=== PATIENT | female | born 1975 | race Caucasian/White ===

== ENCOUNTER 2021-05-03 15:26 | Emergency (ER) | payer MEDICAID, SELFPAY ==
[2021-05-03 15:29] VITALS: BP 138/87; PULSE 104; RESP 22; TEMP 36.7; O2SAT 97; BMI 37.8
--- NOTE | 2021-05-03 16:37 | EDS_ITS ---
HPI HPI - Fall History of Present Illness Chief Complaint: Fall Detail of Chief Complaint: With back pain Informant: patient Occured/Mechanism Occurred: Today Mechanism/Context: Yes same level fall Usually ambulates: Without assistance Pain/Injury Pain Location: back Current Severity: Moderate Maximum Severity: Moderate Associated Symptoms Associated Symptoms: Positive for Inability to ambulate and Loss of consciousness; Negative for Parasthesias, Weakness and Loss of function Narrative Narrative: 45-year-old female with past medical hypertension, depression and anxiety. Was walking her dog it was a snow-covered street then the dog went to pull her and she slipped and fell. Said she went up and there landed on her back injuring her thoracic and lumbar spine. She denies hitting her head. No LOC. She is on no blood thinners. Her only complaint is back pain. She denies any chest or abdominal pain. She has no back history of prior back surgery. She denies any numbness or weakness to her arms or legs. Prior similar symptoms: No Recent Illness/Hospitalization: No PFSH PFSH Medical History Anxiety Depression Hypertension Home Medications lisinopril 05/03/21 [History Last Taken Unknown] Allergy/AdvReac Type Severity Reaction Status Date / Time Penicillins Allergy Rash Verified 05/03/21 15:29 Social History Smoking Status: Never smoker ROS ROS ED ROS Narrative Denies recent illness. Review of Systems ROS Unobtainable: Denies due to encephalopathy Constitutional Constitutional ED: Denies fever(s) Eyes Eyes: Denies change in vision ENT ENT ED: Denies ear pain Cardiovascular Cardiovascular: Denies chest pain Respiratory/Chest Respiratory/Chest: Denies cough or dyspnea Gastrointestinal Gastrointestinal: Denies abdominal pain Genitourinary Genitourinary ED: Denies dysuria or hematuria Musculoskeletal Musculoskeletal: Reports back pain; Denies myalgias Integumentary Denies abscess or rash Neurologic Neurologic: Denies headache(s) Psychiatric Psychiatric: Denies depression Endocrine Endocrinology: Denies polydipsia or polyuria Hematologic/Lymphatic Hematologic/Lymphatic: Denies easy bruising Allergic/Immunologic Allergic/Immunologic ED: Denies urticaria EXAM Physical Exam Narrative Exam Narrative: 45-year-old female lying on a backboard. Vital signs stable afebrile. H EENT exam unremarkable atraumatic. Pupils are reactive to light. Face and scalp nontender. C-spine nontender. Trachea midline. Lungs clear to auscultation bilaterally. Heart regular rate and rhythm rate about 100 no murmur. Chest nontender. Abdomen soft nontender. Pelvic girdle intact. Moving all 4 extremities. Normal range of motion. Nontender no deformity. 5-5 fish liver sorter strength. Dorsi plantar flexion intact. Neurologically she is awake and alert with no focal motor or sensory deficits. Patient was rolled her left side her pain in her back is primary in the mid to lower thoracic area in the lumbar spine. There is no bruising or signs of trauma otherwise. She was taken off the backboard. Const Vital Signs: 05/03/21 15:29 05/03/21 16:50 Temperature 98.0 F Temperature Source Temporal Pulse Rate 104 H Respiratory Rate 22 H 20 H Respiratory Effort Normal Respiratory Depth Normal Respiratory Pattern Normal Blood Pressure 138/87 H Blood Pressure Mean 104 Pulse Ox 97 Oxygen Delivery Method Room Air Positive well nourished, well developed and obese; Negative for cachectic, contractures or unkempt General Appearance ED: well developed and NAD; Negative for unkempt, cachectic or contractures Nutritional Appearance: obese; Negative for cachectic HEENT Reports normocephalic atraumatic; Negative for trauma or tenderness Eyes PERRL and EOMs intact bilaterally General Eye ED: Negative for pale conjunctiva or scleral icterus Neck full ROM, no lymphadenopathy and supple General: Negative for tenderness Chest Wall inspection of chest normal and palpation of chest normal Resp normal respiratory effort, no retractions and clear to auscultation bilaterally Auscultation: Negative for rales, rhonchi or wheezes Cardio regular rate, regular rhythm, S1 normal heart sound, S2 normal heart sound and no murmurs GI non-tender, non-distended and no masses Auscultation: normoactive bowel sounds Palpation: soft; Negative for guarding Back/Spine no CVA tenderness General Back: tenderness; Negative for CVA tenderness or swelling Cervical Spine: Negative for cervical spine tenderness Thoracic Spine / Upper Back: thoracic spinal tenderness Lumbar Spine / Lower Back: lumbar spinal tenderness, paraspinal muscle tenderness and straight leg raise negative bilaterally; Negative for straight leg raise positive right or straight leg raise positive - left Extremity normal to inspection, full ROM, normal capillary refill and no clubbing, cyanosis or edema Neuro oriented x3, moves all extremities and no focal motor deficits Sensorium / Orientation: alert, oriented to person, oriented to place and oriented to time; Negative for orientation impaired, confused, lethargic or stuporous Motor Exam: strength 5/5 throughout; Negative for general weakness or strength abnormal Psych mental status grossly normal and thought process normal Appearance: Negative for unkempt Attitude: No agitated Mood & Affect: Negative for depressed, anxious or tearful Skin Lesions: no lesions Rashes: no rashes MDM MDM MDM Narrative Medical decision making narrative: Morphine and p.o. Zofran. X-rays of her thoracic and lumbar spine are being obtained. C-spine is completely nontender. She has a normal neuro exam.45-year-old female was walking her dog slipped on the ice fell injuring her back. Repeat exam patient is doing well at 5:45 PM. Her pain is much improved to the IM injection of morphine. I went over her x-rays with her. She will be discharged home. Ice to her back. Motrin and Tylenol. Follow-up if not improving. Return if worse. Radiography Diagnostic Testing: Lumbar spine x-rays 3 views interpreted by myself shows no acute abnormality. No fracture. Thoracic spine x-rays 2 views interpreted by myself shows no acute abnormality. No fracture. Discharge Plan Triage Chief Complaint: Fall Other Complaint: Back ED Provider: Chi Lr Dx/Rx/DC Orders Clinical Impression: Back contusion Instructions: ED Back Contusion Prescriptions: No Action lisinopril RF: 0 Primary Care Provider: Care Physician,No Primary Referrals: Graeme Llanos MD [NON-STAFF] - 3-5 Days if not improving Activity Restrictions/Additional Instructions: Your x-rays were normal. Ice to your back to decrease pain and inflammation. Hot shower, warm bath and massage to relax the muscles. Motrin and Tylenol for pain. Follow-up if not improving. Disposition Disposition: Home, Self Care
[2021-05-03] MEDS: Ondansetron ODT 4 MG Tablet PO (16:44)
[2021-05-03] MEDS: morphine 10 MG/ML Syringe IM (16:45)
--- NOTE | 2021-05-03 16:45 | RAD_ITS ---
STUDY: X-RAY - LUMBAR SPINE REASON FOR EXAM: Female, 45 years old. Pain after fall TECHNIQUE: 3 view(s) of the lumbar spine were obtained. COMPARISON: None FINDINGS: Please see the impression. RAD/Lumbar Spine 2 or 3 Views IMPRESSION: No acute fracture or subluxation in the lumbar spine. Minimal to mild multilevel lumbar spondylosis. Electronically Signed: Felipe Wick MD at 17:52 EST Tel , Service support ,
--- NOTE | 2021-05-03 16:45 | RAD_ITS ---
STUDY: X-RAY - THORACIC SPINE REASON FOR EXAM: Female, 45 years old. Pain after fall TECHNIQUE: 3 view(s) of the thoracic spine were obtained. COMPARISON: None. FINDINGS: Please see the impression. RAD/Thoracic Spine 2 Views IMPRESSION: Compression deformity of the superior endplate of T12, probably old. CT scan may be obtained if clinical suspicion for acute fracture is high. Mild multilevel thoracic spondylosis with minimal dextroscoliosis. No endplate erosion. Electronically Signed: Felipe Wick MD at 17:53 EST Tel , Service support ,
[2021-05-03 16:50] VITALS: RESP 20
[2021-05-03 18:04] VITALS: PULSE 94; RESP 20
== END 2021-05-03 18:15 | disposition home or self-care (01) ==
PROVIDERS: Emergency Provider Emergency Medicine; Visit Provider Emergency Medicine
DX: S20.229A Contusion of unspecified back wall of thorax, initial encounter (principal); E66.9 Obesity, unspecified; W00.0XXA Fall on same level due to ice and snow, initial encounter
CPT/HCPCS: 72070; 72100; 96372; 99284

== ENCOUNTER 2022-04-25 19:52 | Emergency (ER) | payer MEDICAID, SELFPAY ==
[2022-04-25 19:53] VITALS: BP 180/95; PULSE 93; RESP 18; TEMP 36.4; O2SAT 95; BMI 35.6
--- NOTE | 2022-04-25 20:03 | EDS_ITS ---
HPI History of Present Illness Chief Complaint: Dental Narrative Narrative: Patient presents with right lower dental pain for 2 to 3 days. No fevers or chills. She has dental decay, she is new to the area and does not have a dentist. [facility] Medical History Anxiety Depression Hypertension Home Medications clindamycin HCl 150 mg capsule 150 mg PO TID #15 caps 04/25/22 [Rx Last Taken Unknown] naproxen 500 mg tablet (Naprosyn) 500 mg PO BID #20 tabs 04/25/22 [Rx Last Taken Unknown] Allergy/AdvReac Type Severity Reaction Status Date / Time Penicillins Allergy Rash Verified 04/25/22 19:54 Social History Smoking Status: Never smoker ROS ROS ED ROS Narrative Past medical history: Reviewed Medications: Reviewed Social history: Noncontributory Review of systems: All systems negative except as indicated General: No fever Eyes: No visual changes ENT: Dental pain, no difficulty swallowing. Neck: No neck pain Cardiovascular: No chest pain Hematologic: No easy bleeding or easy bruising EXAM Physical Exam Narrative Exam Narrative: Physical exam General: Patient appears uncomfortable Head: Normocephalic, Atraumatic Eyes: Conjunctiva not pale ENT: Moist mucous membranes. She has widespread dental decay, she has tenderness right lower second molar, this is a decayed tooth with only remnants seen. There is no periapical abscess. No significant facial swelling. Normal soft palate. No pain under the tongue or firmness or hardness. Neck: Supple, Nontender, No lymphadenopathy Cardiovascular: Regular rate, Regular rhythm Respiratory: No distress, CTA bilaterally Negative for: CVA tenderness Extremities: Nontender, No edema Skin: Normal color, No rash Const Vital Signs: 04/25/22 19:53 Temperature 97.5 F L Temperature Source Temporal Pulse Rate 93 Respiratory Rate 18 Blood Pressure 180/95 H Blood Pressure Mean 123 Pulse Ox 95 Oxygen Delivery Method Room Air MDM MDM MDM Narrative Medical decision making narrative: A. Problems addressed Dental pain, dental infection, I considered the possibilities of deep infections or systemic infections. B. Amount and/or complexity of the data Patient was discussed with her who was in the room who told me that she has been in quite a bit of pain recently. C. Patient does not have any signs or symptoms of any deep infection. I considered x-rays however I do not believe that are needed at this time, patient will be given analgesics and antibiotics in the emergency department and for home. I referred her to dentistry as per our community resource paper. Discharge Plan Triage Chief Complaint: Dental ED Provider: Johan Salazar Dx/Rx/DC Orders Clinical Impression: Dental infection, Odontalgia, Dental decay Instructions: ED Dental Pain Prescriptions: New clindamycin HCl 150 mg capsule 150 mg PO TID Qty: 15 0RF naproxen [Naprosyn] 500 mg tablet 500 mg PO BID Qty: 20 0RF Primary Care Provider: Care Physician,No Primary Referrals: Care Physician,No Primary [Primary Care Provider] - 3-5 Days Disposition Disposition: Home, Self Care
[2022-04-25] MEDS: oxyCODONE 5 MG Tablet PO (20:14)
[2022-04-25] MEDS: Clindamycin HCl 150 MG Capsule 300 MG PO (20:14)
[2022-04-25 20:20] VITALS: RESP 16
== END 2022-04-25 20:20 | disposition home or self-care (01) ==
LOC: ED 20:13
PROVIDERS: Emergency Provider Emergency Medicine; Visit Provider Emergency Medicine
DX: K04.7 Periapical abscess without sinus (principal); K02.9 Dental caries, unspecified; I10 Essential (primary) hypertension; K08.89 Other specified disorders of teeth and supporting structures
CPT/HCPCS: 99283; A4216

== ENCOUNTER 2022-12-04 17:50 | Emergency (ER) | payer OTHER, MEDICAID, SELFPAY ==
[2022-12-04 17:51] VITALS: BP 177/112; PULSE 119; RESP 14; TEMP 36.9; O2SAT 97; BMI 35.9
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
--- NOTE | 2022-12-04 18:22 | ED.RN ---
Per Dr Lr patient is low risk and does not require a sitter.
[2022-12-04 18:28] LABS: Absolute Neutrophil Count 6.7 X10^3/uL (2.0-7.7); Basophil# 0.06 X10^3/uL; Basophil% 0.6 % (0-1); Eosinophil# 0.14 X10^3/uL; Eosinophils% 1.5 % (0-5); Hematocrit 41.8 % (37-47); Hemoglobin 13.8 g/dL (12.0-15.0); Lymphocyte % 19.8 % (19-41); Mean Corpuscular Hgb 29.5 pg (27.0-32.0); Mean Corpuscular Volume 89.3 fL (81-99); Mean Platelet Vol. 9.8 fl (6.2-12.0); Monocyte# 0.71 X10^3/uL; Monocyte% 7.4 % (0-10); NRBC Flagged by Analyzer 0 % (0-5); Neutrophil # 6.74 X10^3/uL (2.7-7.7); Neutrophil % 70.4 % (47-70); Platelet Count 307 K/mm3 (150-450); RBC Distribution Width SD 42.5 fl (35.1-43.9); Red Blood Count 4.68 M/mm3 (4.2-5.4); White Blood Count 9.6 K/mm3 (4.4-11.0)
[2022-12-04 18:39] LABS: Internal QC Validated? YES +Cl - CLEAR BKGD; Pregnancy, Serum, hCG Quali. NEGATIVE Negative
[2022-12-04 18:42] LABS: Alcohol, Blood (Medical)-Serum < 3.0 mg/dL
[2022-12-04 18:43] LABS: Anion Gap 5 (5-15); BUN 15 mg/dL (7-18); Chloride 107 mmol/L (98-107); Creatinine, Serum 0.68 mg/dL (0.55-1.02); EST Glomerular Filtration Rate 98 mL/min (>60); Est Glom Filt Rate - Afr Amer 119 mL/min (>60); Estimated Creatinine Clearance 88.32 ml/min; Glucose 137 mg/dL (74-106); Potassium 3.6 mmol/L (3.5-5.1); Sodium Level 136 mmol/L (136-145)
[2022-12-04 18:44] LABS: Amphetamine Urine VISTA NEGATIVE (<1000 ng/mL); Barbiturate Urine VISTA NEGATIVE (< 200 ng/mL); Benzodiazepine Urine VISTA NEGATIVE (< 200 ng/mL); Cocaine Urine VISTA NEGATIVE (< 300 ng/mL); Ecstacy Urine VISTA NEGATIVE (< 500 ng/mL); Methadone Urine VISTA NEGATIVE (< 300 ng/mL); PCP Urine VISTA NEGATIVE (< 25 ng/mL); THC Urine VISTA NEGATIVE (< 50 ng/mL); Vista UDS pH Range 6
[2022-12-04 19:00] VITALS: RESP 16
--- NOTE | 2022-12-04 19:39 | NURSING ---
TALKED TO CRISIS AT 194
[2022-12-04 19:45] VITALS: RESP 16
--- NOTE | 2022-12-04 20:03 | EKG12_ITS ---
Test Reason : [facility] Blood Pressure : / mmHG Vent. Rate : 105 BPM Atrial Rate : 105 BPM P-R Int : 156 ms QRS Dur : 078 ms QT Int : 350 ms P-R-T Axes : 051 006 038 degrees QTc Int : 462 ms Sinus tachycardia Minimal voltage criteria for LVH, may be normal variant ( R in aVL ) Borderline ECG Confirmed by RAY KEENE ([id number]), industrial editor EUGENIA LARRY ([id number]) on 12/17/2022 2:07:23 PM Referred By: Confirmed By:RAY KEENE
[2022-12-04 23:45] VITALS: BP 121/76; PULSE 84; RESP 16; O2SAT 99
--- NOTE | 2022-12-04 23:46 | ED.RN ---
ACCEPTED AT [facility]. UNABLE TO TRANSPORT OR CALL REPORT UNTIL AFTER 9AM. FACILITY REQUESTED REPORT BE CALLED ONCE SHE LEAVES.
[2022-12-05 03:00] VITALS: BP 138/74; PULSE 87; RESP 16; O2SAT 99
--- NOTE | 2022-12-05 09:34 | NURSING ---
this RN called report to YOSHI Varghese at [facility]
== END 2022-12-05 10:35 ==
LOC: ED 18:35
PROVIDERS: Emergency Provider Emergency Medicine; Visit Provider Emergency Medicine
DX: R45.851 Suicidal ideations (principal); I10 Essential (primary) hypertension; F32.A Depression, unspecified; Z63.8 Other specified problems related to primary support group
CPT/HCPCS: 80048; 80307; 82077; 84703; 85025; 87811; 93005; 99283

== ENCOUNTER 2023-01-05 21:59 | Emergency (ER) | payer OTHER, MEDICAID, SELFPAY ==
[2023-01-05 22:00] VITALS: BP 147/86; PULSE 99; RESP 18; TEMP 36.8; O2SAT 98; BMI 37.1
--- NOTE | 2023-01-05 22:10 | CT_ITS ---
STUDY: CT BRAIN WITHOUT CONTRAST REASON FOR EXAM: Female, 47 years old. numbness RADIATION DOSAGE (If Supplied By Facility): CTDIvol = ( 44.99 ) mGy, DLP = ( 812.98 ) mGycm TECHNIQUE: Transaxial CT imaging of the brain was performed without administration of intravenous contrast material. Individualized dose optimization techniques were used for this CT. COMPARISON: No relevant priors. FINDINGS: Normal soft tissue structures. Normal calvarium. Normal size ventricles and extra-axial spaces for the patient''s age. Normal white matter tracts of the cerebral hemispheres. Normal basal ganglia and thalami. Normal brainstem. Normal cerebellum. There is no intracranial hemorrhage. There are no findings of an acute ischemic infarction. Normal visualized paranasal sinuses. CT/Brain/Head without Contrast IMPRESSION: Normal unenhanced CT scan of the brain. Electronically Signed: Kashmir Baum MD at 22:47 EDT ,
--- NOTE | 2023-01-05 22:12 | EX.ED.DYSGE1 ---
HPI History of Present Illness Chief Complaint: Numb/Ting Narrative Narrative: 47-year-old female past medical history of hypertension, presents with numbness and tingling of her arms, legs, and lips that she has had for the last half hour. She states after the kids went to bed, she usually engages in family car game with her family. She states she was sitting and then she began feeling numbness and tingling of her arms, legs, and lips. She felt shaky as well. She denies any fevers or chills. She may have been nauseated but has not vomited. States she needed help walking to the squad. Its both arms and both legs. No exacerbating or alleviating factors. While she states that she is not stressed about anything, she does have past medical history of anxiety according to her problem list. [facility] Medical History Anxiety Depression Hypertension Home Medications duloxetine 20 mg capsule,delayed release 20 mg PO DAILY 12/04/22 [History Last Taken Unknown] ergocalciferol (vitamin D2) 1,250 mcg (50,000 unit) capsule 50,000 unit PO QWEEK 12/04/22 [History Last Taken Unknown] lisinopril 10 mg tablet 10 mg PO DAILY 12/04/22 [History Last Taken Unknown] Allergy/AdvReac Type Severity Reaction Status Date / Time Penicillins Allergy Rash Verified 01/05/23 22:05 Social History Smoking Status: Never smoker ROS ROS ED ROS Narrative Constitutional: No fever, no chills. HEENT: No sore throat. No neck pain. No loss of vision. No rhinorrhea. Cardiovascular: No chest pain. No palpitations. No pedal edema. Respiratory: No cough, no shortness of breath. Abdominal: No abdominal pain. No nausea. No vomiting. Genitourinary: No dysuria. No hematuria. Musculoskeletal: No myalgias. No arthralgias. Neurologic: Positive headaches. No dizziness. No lightheadedness. Positive paresthesias of bilateral arms, legs, and periorbital. Skin: No rash. No change in color. Psychiatric: No depression. No anxiety. EXAM Physical Exam Narrative Exam Narrative: Afebrile. Vital signs noted. HEENT: Normocephalic. Atraumatic. PERRL, EOMI. Neck soft and supple. No point tenderness or step off. Cardiovascular: Regular rate and rhythm. No murmurs, rubs, or gallops appreciated. Respiratory: No tachypnea. Lungs clear to auscultation bilaterally. Gastrointestinal: Abdomen soft, nontender, with normoactive bowel sounds. No rebound or guarding. Neurological: Awake. Alert. Oriented x3. Nonfocal, nonlateralizing. DTRs equal and symmetric. Skin: No rash. Normal color. No pallor. Musculoskeletal: No pedal edema. Full range of motion extremities. Const Vital Signs: 01/05/23 22:00 Temperature 98.2 F Temperature Source Temporal Pulse Rate 99 Respiratory Rate 18 Blood Pressure 147/86 H Blood Pressure Mean 106 Pulse Ox 98 Oxygen Delivery Method Room Air MDM MDM MDM Narrative Medical decision making narrative: I do not feel that stroke team is indicated. Additionally, her symptoms are bilateral. In the differential diagnosis is electrolyte imbalance versus dehydration versus hyperventilation. She is not tachypneic on exam however. CBC, CMP, and magnesium will be obtained along with EKG. I do feel imaging of her brain is indicated as she states that she been having headaches all day. There may be some anxiety component to this as well. She will be bolused normal saline 1 L intravenously. EKG was obtained and interpreted by myself independently as normal sinus rhythm at 88 bpm without ectopy or acute ST changes. No STEMI. No significant change from EKG dated December 04, 2022 except it was tachycardia at that time. I reviewed her prior records, and I reviewed her laboratory work from today, she has a normal white count of 10.8, hemoglobin normal at 12.6, platelet count normal at 170. CMP shows chloride slightly elevated at 110 which I think is nonspecific, anion gap low at 4 but normal creatinine of 0.75 and normal BUN of 10. I do not feel she is dehydrated. LFTs are grossly unremarkable and normal. CT of the brain images were reviewed and I see no evidence of acute hemorrhage, I reviewed the radiology report which confirms my independent interpretation of her CT scan. At this point in time, I am unsure as to the cause of her bilateral paresthesias of her arms and legs and periorbital numbness, but I feel she can be discharged safely home with follow-up. I have low concern for stroke as her symptoms are bilateral. I do not feel she requires observation or admission. Return instructions to the emergency department were reviewed. Disposition is discharged home in stable condition. History & Record Review Discussion w/independent historian: Patient Additional record(s) reviewed:: Prior ED visit Lab Data Attestation: I reviewed the patient's lab results. Labs: Laboratory Results - last 24 hr 01/05/23 22:14 WBC 10.8 RBC 4.26 Hgb 12.6 Hct 39.0 MCV 91.5 MCH 29.6 MCHC 32.3 RDW Std Deviation 44.7 H RDW Coeff of [place] 13.3 Plt Count 170 MPV 10.5 Immature Gran % (Auto) 0.500 Neut % (Auto) 65.0 Lymph % (Auto) 22.7 [place] % (Auto) 8.8 Eos % (Auto) 2.4 Baso % (Auto) 0.6 Absolute Neuts (auto) 7.1 Absolute Lymphs (auto) 2.46 Nucleated RBC % 0 Sodium 137 Potassium 4.1 Chloride 110 H Carbon Dioxide 23.0 Anion Gap 4 L BUN 10 Creatinine 0.75 Estim Creat Clear Calc 80.07 Est GFR (MDRD) Af Amer 107 Est GFR (MDRD) Non-Af 88 BUN/Creatinine Ratio 13.4 Glucose 117 H Calcium 8.7 Magnesium 2.1 Total Bilirubin 0.20 AST 27 ALT 16 Alkaline Phosphatase 80 Total Protein 7.7 Albumin 3.5 Globulin 4.2 Albumin/Globulin Ratio 0.8 L Radiography Diagnostic Testing: Clinical Impression(s) from Imaging Studies Brain CT 01/05/23 22:10 IMPRESSION: Normal unenhanced CT scan of the brain. Electronically Signed: Kashmir Baum MD at 22:47 EDT , Discharge Plan Triage Chief Complaint: Numb/Ting ED Provider: Agusto Kitchen Dx/Rx/DC Orders Clinical Impression: Paresthesias, Shakiness Instructions: ED Near-Fainting, Uncertain Cause, ED Paraesthesias Prescriptions: No Action lisinopril 10 mg tablet 10 mg PO DAILY ergocalciferol (vitamin D2) 1,250 mcg (50,000 unit) capsule 50,000 unit PO QWEEK Patient Comments: TAKE 1 CAPSULE BY MOUTH ONCE A WEEK duloxetine 20 mg capsule,delayed release(DR/EC) 20 mg PO DAILY Primary Care Provider: Care Physician,No Primary Referrals: Care Physician,No Primary [Primary Care Provider] - Activity Restrictions/Additional Instructions: Follow-up with your primary care provider at the [facility] within the next week if worsening. Disposition Disposition: Home, Self Care
[2023-01-05 22:20] LABS: Absolute Lymphocyte Count 2.46 X10^3/uL (0.83-4.51); Absolute Neutrophil Count 7.1 X10^3/uL (2.0-7.7); Basophil# 0.06 X10^3/uL; Basophil% 0.6 % (0-1); Eosinophil# 0.26 X10^3/uL; Eosinophils% 2.4 % (0-5); Hemoglobin 12.6 g/dL (12.0-15.0); Lymphocyte # 2.46 X10^3/ul (0.83-4.51); Lymphocyte % 22.7 % (19-41); Mean Corp Hgb Conc 32.3 g/dL (32-36); Mean Corpuscular Hgb 29.6 pg (27.0-32.0); Mean Corpuscular Volume 91.5 fL (81-99); Mean Platelet Vol. 10.5 fl (6.2-12.0); Monocyte# 0.95 X10^3/uL; Monocyte% 8.8 % (0-10); NRBC Flagged by Analyzer 0 % (0-5); Neutrophil # 7.06 X10^3/uL (2.7-7.7); Platelet Count 170 K/mm3 (150-450); RBC Distribution Width CV 13.3 % (11.6-14.6); RBC Distribution Width SD 44.7 fl (35.1-43.9); Red Blood Count 4.26 M/mm3 (4.2-5.4); White Blood Count 10.8 K/mm3 (4.4-11.0)
[2023-01-05] MEDS: 0.9% Normal Saline (1000mL) 1,000 ML 999 ML IV (22:24)
[2023-01-05 23:11] LABS: ALB/GLOB Ratio 0.8 RATIO (0.9-2.4); AST(SGOT) 27 U/L (15-37); Alanine Aminotransfer ALT/SGPT 16 U/L (13-56); Albumin, Serum 3.5 g/dL (3.2-5.0); Alkaline Phosphatase 80 U/L (45-117); Anion Gap 4 (5-15); BUN 10 mg/dL (7-18); BUN/Creat Ratio 13.4 RATIO (10-20); Calcium,Total 8.7 mg/dL (8.5-10.1); Chloride 110 mmol/L (98-107); Creatinine, Serum 0.75 mg/dL (0.55-1.02); EST Glomerular Filtration Rate 88 mL/min (>60); Est Glom Filt Rate - Afr Amer 107 mL/min (>60); Estimated Creatinine Clearance 80.07 ml/min; Globulin 4.2 g/dL (2.2-4.2); Glucose 117 mg/dL (74-106); Magnesium 2.1 mg/dL (1.6-2.6); Potassium 4.1 mmol/L (3.5-5.1); Protein, Total 7.7 g/dL (6.4-8.2); Sodium Level 137 mmol/L (136-145)
[2023-01-05 23:25] VITALS: PULSE 97; RESP 19; O2SAT 98
== END 2023-01-05 23:26 | disposition home or self-care (01) ==
PROVIDERS: Emergency Provider Emergency Medicine; Visit Provider Emergency Medicine
DX: R20.2 Paresthesia of skin (principal); I10 Essential (primary) hypertension; R25.1 Tremor, unspecified; F41.9 Anxiety disorder, unspecified; F32.A Depression, unspecified; Z79.899 Other long term (current) drug therapy
CPT/HCPCS: 70450; 80053; 83735; 85025; 93005; 96360; 99285; J7030; A4216

== ENCOUNTER 2023-12-15 10:32 | Emergency (ER) | payer OTHER, MEDICAID, SELFPAY ==
[2023-12-15 10:34] VITALS: BP 134/62; PULSE 109; RESP 14; TEMP 36.6; O2SAT 98; BMI 33.5
--- NOTE | 2023-12-15 10:54 | RAD_ITS ---
STUDY: X-RAY - RIGHT ANKLE REASON FOR EXAM: Female, 48 years old. No known injury. Pain and swelling. TECHNIQUE: 3 view(s) of the ankle. COMPARISON: None. FINDINGS: Normal visualized distal tibia and fibula. Normal medial and lateral malleoli. Normal tibiotalar articulation and ankle mortise. Plantar spur. The visualized subtalar, talonavicular, calcaneocuboid and tarsal articulations are normal. Diffuse soft tissue swelling. RAD/Ankle min 3 Views IMPRESSION: Diffuse soft tissue swelling. Plantar spur. Electronically Signed: Hussain Watson MD at 11:14 EDT ,
--- NOTE | 2023-12-15 10:55 | ED.VIS.LOWEX ---
HPI History of Present Illness Chief Complaint: Lower Extremity Injury Informant: patient Narrative Narrative: Patient is a 48-year-old female presenting with atraumatic right ankle pain. Patient states she has had increased pain in her right ankle along the lateral aspect for the past few days. She works third shift and her boss noticed that she was favoring and limping last night. She was told that she should have it evaluated but should take the following day off. She came in for evaluation. She does that she has had previous ankle sprains and injuries but no prior fractures to this right ankle. She does not know why it is hurting so much now and she cannot recall an injury. Does note some increased swelling of her right foot. Denies any fever or chills. Denies any other complaints at this time. Did take Advil around 10 AM (about 45 minutes prior to arrival) with some improvement. No other complaints or concerns at this time. [facility] Medical History Anxiety Depression Hypertension Home Medications ?Medication ?Instructions ?Recorded ?Last Taken ?Type duloxetine 20 mg capsule,delayed 20 mg PO DAILY 12/04/22 Unknown History release ergocalciferol (vitamin D2) 1,250 50,000 unit PO QWEEK 12/04/22 Unknown History mcg (50,000 unit) capsule lisinopril 10 mg tablet 10 mg PO DAILY 12/04/22 Unknown History Allergy/AdvReac Type Severity Reaction Status Date / Time Penicillins Allergy Rash Verified 12/15/23 10:33 Social History Smoking Status: Never smoker ROS ROS ED Constitutional Constitutional ED: Denies chills or fever(s) Gastrointestinal Gastrointestinal: Denies nausea or vomiting Musculoskeletal Musculoskeletal: Reports other Details: Right ankle pain Integumentary Denies Abrasions or rash Neurologic Neurologic: Denies paresthesias or weakness Hematologic/Lymphatic Hematologic/Lymphatic: Denies easy bleeding or easy bruising EXAM Physical Exam Const Vital Signs: 12/15/23 10:34 Temperature 98 F Temperature Source Temporal Pulse Rate 109 H Respiratory Rate 14 Blood Pressure 134/62 H Blood Pressure Mean 86 Pulse Ox 98 Oxygen Delivery Method Room Air Positive well nourished and well developed General Appearance ED: well developed and NAD Resp normal respiratory effort Cardio regular rate and regular rhythm Cardio Narrative: 2+ DP pulse on the right Extremity Extremity Narrative: Mild tenderness palpation over the right lateral ankle. No obvious joint effusion present. Pain with range of motion but no short arc pain to motion. No overlying warmth. No tenderness palpation over the right fibular head or the right fifth metatarsal head. Normal Miranda test. Neuro oriented x3, moves all extremities and no sensory deficits noted Sensorium / Orientation: alert Motor Exam: Negative for general weakness Psych mental status grossly normal Skin no wounds Rashes: no rashes MDM MDM MDM Narrative Medical decision making narrative: Patient is evaluated for atraumatic right ankle pain. Suspect this is more muscle skeletal. Will obtain an x-ray. Differential includes ankle fracture, stress fracture, ankle sprain. Given reproducible pain of the ankle low suspicion for DVT. She is not short arc range of motion pain to low suspicion for septic joint or gout. Patient is given Tylenol for pain control in the emergency room. X-ray reviewed by myself as well as radiology does not show any acute fracture. She does have soft tissue swelling. She does not have any findings of some cellulitis or other skin abnormality on exam. Will be discharged home with an air stirrup and will be treated conservatively with RICE therapy. Given return precautions. Patient agreeable plan of care. Discharged home in stable condition. Radiography Diagnostic Testing: Clinical Impression(s) from Imaging Studies Ankle X-Ray 12/15/23 10:54 IMPRESSION: Diffuse soft tissue swelling. Plantar spur. Electronically Signed: Hussain Watson MD at 11:14 EDT , Discharge Plan Triage Chief Complaint: Lower Extremity Injury ED Provider: Kelsie Morin Dx/Rx/DC Orders Clinical Impression: Acute right ankle pain Instructions: ED Ankle Sprain (Adult) Prescriptions: No Action lisinopril 10 mg tablet 10 mg PO DAILY ergocalciferol (vitamin D2) 1,250 mcg (50,000 unit) capsule 50,000 unit PO QWEEK Patient Comments: TAKE 1 CAPSULE BY MOUTH ONCE A WEEK duloxetine 20 mg capsule,delayed release(DR/EC) 20 mg PO DAILY Primary Care Provider: Care Physician,No Primary Referrals: Jarrde Castro MD [Med Staff - Active Staff] - 1 Week if not improving Care Physician,No Primary [Primary Care Provider] - Activity Restrictions/Additional Instructions: Your x-ray did not show any bony acute abnormalities today but does show some swelling. We will treat this as a sprain or strain of the ankle with Aircast, RICE therapy (rest, ice, compression and elevation) and you may continue to take [id number] ibuprofen and Tylenol as needed for pain. Please return if you have a progression worsening of your symptoms and you been given outpatient orthopedics to follow-up with that this is not improving as expected. Print Language: [place]alan Disposition Disposition: Home, Self Care
[2023-12-15] MEDS: Acetaminophen 325 MG Tablet 650 MG PO (10:57)
== END 2023-12-15 12:18 | disposition home or self-care (01) ==
PROVIDERS: Emergency Provider Emergency Medicine; Visit Provider Emergency Medicine
DX: M25.571 Pain in right ankle and joints of right foot (principal); I10 Essential (primary) hypertension; M79.89 Other specified soft tissue disorders; F32.A Depression, unspecified; F41.9 Anxiety disorder, unspecified
CPT/HCPCS: 73610; 99283

== ENCOUNTER 2024-02-01 18:32 | Emergency (ER) | payer MEDICAID, SELFPAY ==
[2024-02-01 18:32] VITALS: BP 169/81; PULSE 93; RESP 16; TEMP 36.4; O2SAT 99; BMI 33.6
--- NOTE | 2024-02-01 18:55 | ED.VIS.LOWEX ---
HPI History of Present Illness HPI Narrative: Patient presents with right foot pain that has been getting worse over the past 2 weeks. Patient was seen here for a foot injury approximately 1 month ago. Patient states she was doing better and then over the last 2 weeks it started getting worse. Patient denies any new trauma or injury. Patient states her pain is sharp. Patient states it is constant. Patient states it is worse with certain movements. Patient denies any paresthesias or weakness. Patient denies any other injuries. Chief Complaint: Lower Extremity Injury Informant: patient Onset/Context/Timing Onset: Weeks (2) Context: Gradual Onset Quality of Pain: Sharp Location: Right foot Worsened by: Certain movements Relieved by: Nothing Associated Symptoms Associated Symptoms: Negative for Parasthesia, Weakness or Loss of Funtion PFSH PFSH Medical History Anxiety Depression Hypertension Home Medications ?Medication ?Instructions ?Recorded ?Last Taken ?Type duloxetine 20 mg capsule,delayed 20 mg PO DAILY 12/04/22 Unknown History release ergocalciferol (vitamin D2) 1,250 50,000 unit PO QWEEK 12/04/22 Unknown History mcg (50,000 unit) capsule lisinopril 10 mg tablet 10 mg PO DAILY 12/04/22 Unknown History Allergy/AdvReac Type Severity Reaction Status Date / Time Penicillins Allergy Rash Verified 12/15/23 10:33 Surgical History no surgical history no surgical history Social History household members: children current occupational status: employed Smoking Status: Never smoker ROS ROS ED Constitutional Constitutional ED: Denies chills or fever(s) Eyes Eyes: Denies blurry vision or change in vision ENT ENT ED: Denies rhinorrhea or sore throat Cardiovascular Cardiovascular: Denies chest pain or palpitations Respiratory/Chest Respiratory/Chest: Denies cough or dyspnea Gastrointestinal Gastrointestinal: Denies nausea or vomiting Genitourinary Genitourinary ED: Denies dysuria or hematuria Musculoskeletal Musculoskeletal: Denies back pain or neck pain Integumentary Denies abscess or rash Neurologic Neurologic: Denies headache(s) or weakness Allergic/Immunologic Allergic/Immunologic ED: Denies mouth swelling or urticaria EXAM Physical Exam Const Vital Signs: 02/01/24 18:32 Temperature 97.5 F L Temperature Source Oral Pulse Rate 93 Respiratory Rate 16 Blood Pressure 169/81 H Blood Pressure Mean 110 Pulse Ox 99 Oxygen Delivery Method Room Air Positive well nourished and well developed General Appearance ED: well developed and NAD HEENT Reports moist mucous membranes Neck full ROM and supple Extremity Extremity Narrative: There is tenderness to palpation over the right midfoot. There is no edema or ecchymosis. There is no bony crepitance or step-off noted. Range of motion was somewhat limited in all motions of the right foot and ankle secondary to pain. There is a strong pedal pulse noted. Sensation was intact to light touch in all digits. Capillary refill was less than 2 seconds in all digits. Strength is 5/5 bilateral in lower extremities. Neuro oriented x3, CN's II-XII intact bilaterally, moves all extremities and no sensory deficits noted Sensorium / Orientation: alert Motor Exam: strength 5/5 throughout Psych mental status grossly normal MDM MDM MDM Narrative Medical decision making narrative: Differential diagnosis includes sprain, contusion, and occult fracture. X-rays of the right foot will be obtained to assess for occult fracture. Radiography Diagnostic Testing: Clinical Impression(s) from Imaging Studies Foot X-Ray 02/01/24 19:05 IMPRESSION: No fracture. Heel spur. Electronically Signed: Wili Saucedo MD at 19:56 EDT , X-rays of the right foot were obtained. There are 3 views. On my independent interpretation, there is no acute fracture or dislocation noted. There is some mild soft tissue swelling. Radiologist also interpreted the x-rays and agrees. Treatment and Re-Evaluation Narrative: Patient was advised of her findings. Patient was given a postoperative shoe. Patient was instructed to ice and elevate the right foot. Patient was instructed to take Tylenol or ibuprofen as needed for pain. Patient was instructed to follow-up with a primary care physician in 5 to 7 days. Patient was advised she may need physical therapy. Patient was instructed to return if worse in any way. Patient understood and was agreeable with the plan. All questions were answered. Discharge Plan Triage Chief Complaint: Lower Extremity Injury ED Provider: Ousmane Joy Dx/Rx/DC Orders Clinical Impression: Right foot sprain, Hypertension Instructions: ED Foot Sprain Prescriptions: No Action lisinopril 10 mg tablet 10 mg PO DAILY ergocalciferol (vitamin D2) 1,250 mcg (50,000 unit) capsule 50,000 unit PO QWEEK Patient Comments: TAKE 1 CAPSULE BY MOUTH ONCE A WEEK duloxetine 20 mg capsule,delayed release(DR/EC) 20 mg PO DAILY Stand Alone Forms: ED Work / School Excuse Primary Care Provider: Care Physician,No Primary Referrals: Soo Hawk MD [Med Staff - Trial Lawyer] - 5-7 Days Care Physician,No Primary [Primary Care Provider] - Print Language: Citizen Of [place] Disposition Disposition: Home, Self Care
--- NOTE | 2024-02-01 19:05 | RAD_ITS ---
STUDY: X-RAY - RIGHT FOOT CLINICAL: Female, 48 years old. Injury/Pain TECHNIQUE: 3 view(s) of the foot. COMPARISON: None. FINDINGS: Normal talus. There is plantar spur of the calcaneus. Normal visualized subtalar, talonavicular, calcaneocuboid, tarsal and tarsometatarsal articulations. Normal metatarsi. Normal metatarsophalangeal joint of the great toe. Normal tibial and fibular sesamoid bones. Normal interphalangeal joint of the great toe. Normal phalanges of the great toe. Normal second through fifth metatarsophalangeal joints. Normal interphalangeal joints and phalanges of the lesser toes. The soft tissue structures are unremarkable. There is no demonstrated fracture. RAD/Foot min 3 Views IMPRESSION: No fracture. Heel spur. Electronically Signed: Wili Saucedo MD at 19:56 EDT ,
[2024-02-01 20:14] VITALS: BP 154/71; PULSE 82; RESP 16; TEMP 36.6; O2SAT 96
== END 2024-02-01 20:15 | disposition home or self-care (01) ==
PROVIDERS: Emergency Provider Emergency Medicine; Visit Provider Emergency Medicine
DX: S93.601A Unspecified sprain of right foot, initial encounter (principal); I10 Essential (primary) hypertension; F41.9 Anxiety disorder, unspecified; F32.A Depression, unspecified; Z79.899 Other long term (current) drug therapy
CPT/HCPCS: 73630; 99283